=== PATIENT | male | born 1965 | race Native Hawaiian/Other Pacific Islander ===

== ENCOUNTER 2016-10-20 21:28 | Emergency (ER) | payer OTHER ==
[2016-10-20 21:44] VITALS: BP 140/75; PULSE 98; RESP 20; TEMP 98.2; O2SAT 98
[2016-10-20] MEDS ORDERED: METF1000 PO (21:54)
[2016-10-20] MEDS ORDERED: EMPA1TAB PO (21:54)
[2016-10-20] MEDS ORDERED: GLIP10TA6 PO (21:54)
[2016-10-20] MEDS ORDERED: LISI40TA PO (21:54)
[2016-10-20] MEDS ORDERED: cholesteral med (21:54)
[2016-10-20 22:22] VITALS: O2SAT 99
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
[2016-10-20] MEDS ORDERED: SODIUM CHLORIDE 0.9% FLUSH 10 ML FLUSH IV FLUSH PRN (22:30)
[2016-10-20 22:37] LABS: AUTOMATED NEUTROPHIL # 8.1 TH/MM3 (1.8-7.7); BASOPHIL % 0.4 % (0.0-2.0); EOSINOPHIL % 0.3 % (0.0-4.0); HEMATOCRIT 47.4 % (39.0-51.0); HEMO FLAGS DIFF FINAL; LYMPH % 13.9 % (9.0-44.0); LYMPHOCYTE # 1.4 TH/MM3 (1.0-4.8); MEAN CORPUSCULAR HGB CONC 35.2 % (32.0-36.0); NEUT % 78.4 % (16.0-70.0); PLATELET COUNT 194 TH/MM3 (150-450); RED BLOOD COUNT 5.39 MIL/MM3 (4.50-5.90); RED CELL DISTRIBUTION WIDTH 12.9 % (11.6-17.2); WHITE BLOOD COUNT 10.3 TH/MM3 (4.0-11.0)
[2016-10-20 22:47] LABS: APTT (PATIENT) 26.4 SEC (24.3-30.1); INTERNATIONAL NORMALIZED RATIO 0.9 RATIO; PROTHROMBIN TIME - PATIENT 10.3 SEC (9.8-11.6)
[2016-10-20 22:53] LABS: ALKALINE PHOSPHATASE 35 U/L (45-117); TOTAL BILIRUBIN ADULT 0.5 MG/DL (0.2-1.0)
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
[2016-10-20 23:02] LABS: ANION GAP 9 MEQ/L (5-15); BICARBONATE 27.1 MEQ/L (21.0-32.0); BLOOD UREA NITROGEN 20 MG/DL (7-18); CHLORIDE 100 MEQ/L (98-107); GLOMERULAR FILTRATION RATE 53 ML/MIN (>89); SODIUM (NA) 136 MEQ/L (136-145)
[2016-10-20 23:04] LABS: ALT (GPT) 38 U/L (12-78); AST (GOT) 45 U/L (15-37)
[2016-10-20 23:05] LABS: POTASSIUM 4.4 MEQ/L (3.5-5.1)
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
== END 2016-10-20 23:51 | disposition home or self-care (01) ==
LOC: NEPD 21:28
DX: E11.65 Type 2 diabetes mellitus with hyperglycemia (principal); I10 Essential (primary) hypertension; Z72.0 Tobacco use; Z79.899 Other long term (current) drug therapy; V43.52XA Car driver injured in collision with other type car in traffic accident, initial encounter
CPT/HCPCS: 70450; 72125; 80053; 80307; 85025; 85610; 85730